=== PATIENT | female | born 1985 | race African-American/Black ===

== ENCOUNTER 2022-06-06 07:21 | Emergency (ER) | payer OTHER, SELFPAY ==
--- NOTE | ~2022-06-06 | XR_ITS ---
EXAMINATION: XR CHEST CLINICAL INFORMATION: Shortness of breath COMPARISON: None TECHNIQUE: 2 views of the chest were obtained. FINDINGS: Cardiac leads overlie the chest. The lungs are well expanded. There is no focal consolidation, edema, or effusion. No pneumothorax. The cardiomediastinal silhouette is within normal limits. No acute osseous abnormality. XR/XR chest 2V IMPRESSION: Clear lungs.
--- NOTE | 2022-06-06 07:40 | ECG_ITS ---
Test Reason : chest tightness/ discomfort Blood Pressure : / mmHG Vent. Rate : 076 BPM Atrial Rate : 076 BPM P-R Int : 130 ms QRS Dur : 068 ms QT Int : 388 ms P-R-T Axes : 033 007 018 degrees QTc Int : 436 ms Normal sinus rhythm Normal ECG No previous ECGs available Referred By: Generic ED Physician Electronically Signed By:SHIVANI EMERSON MD
[2022-06-06 07:41] VITALS: BP 112/79; PULSE 74; RESP 18; TEMP 36.9; O2SAT 99; BMI 37.6
--- NOTE | 2022-06-06 08:08 | ED.GENADULT ---
HPI - General Adult General Chief complaint: Arrhythmia/Palpitations Stated complaint: Heart Palpitations Time Seen by Provider: 06/06/22 08:08 Source: patient Mode of arrival: ambulatory Limitations: no limitations History of Present Illness HPI narrative: Patient is a 37 year old assigned female at with no reported medical history presenting to the emergency department today with palpitations and dry skin. Patient states that she has noticed over the last week that she has had palpitations and dry skin of the left hand. Patient states that the palpitations come and go but nothing seems to help and nothing seems to make it better. Patient states she also noticed a patch of dry skin on her left hand. Patient denies any dizziness, lightheadedness, abdominal pain, nausea, vomiting, fever, chills, blurry vision, double vision, loss of vision, chest pain, difficulty breathing, shortness of breath, back pain, night sweats, vaginal bleeding, vaginal discharge, pain with urination, increased urinary frequency, increased urinary urgency, blood in her urine or stool, syncope or a near syncopal episode, recent trauma or falls, bowel incontinence, bladder incontinence, bowel retention, bladder retention, or any other complaints at this time. Onset (ago): week(s) (1) Severity: mild Severity scale (1-10): 2 Relieving factors: none Exacerbating factors: none Associated symptoms: denies other symptoms Treatments prior to arrival: none Related Data Previous Rx's Medication Instructions Recorded hydrocortisone 2.5 % topical cream 1 appl topical BID PRN skin 06/06/22 irritation #20 grams Allergies Allergy/AdvReac Type Severity Reaction Status Date / Time No Known Allergies Allergy Unverified 04/20/20 19:33 [No Known Allergies*] Review of Systems Constitutional: Constitutional: Reports no additional constitutional complaints, Denies chills, Denies fever(s) and Denies night sweats Eyes: Eyes: Reports no additional eye complaints, Denies blurry vision, Denies change in vision, Denies diplopia, Denies eye discharge, Denies loss of vision and Denies eye pain ENT: Denies dizziness Cardiovascular: Cardiovascular: Reports no additional cardiovascular complaints, Denies chest pain, Denies lightheadedness, Denies Loss of Consciousness and Denies dyspnea Comments: palpitations Respiratory: Respiratory: Reports no additional respiratory complaints and Denies dyspnea Gastrointestinal: Gastrointestinal: Reports no additional gastrointestinal complaints, Denies abdominal pain, Denies melena, Denies hematochezia, Denies change in bowel habits and Denies change in stool character Genitourinary: Genitourinary: Denies hematuria, Denies urinary frequency, Denies dysuria, Denies urinary incontinence, Denies urinary hesitancy and Denies urinary urgency Musculoskeletal: Musculoskeletal: Reports no additional musculoskeletal complaints, Denies numbness and Denies tingling Integumentary/Breasts: Comments: dry area of skin to left hand Neurologic: Denies dizziness, Denies loss of vision, Denies numbness and Denies tingling Psychiatric: Psychiatric: Reports no additional psychiatric complaints Endocrine: Endocrine: Reports no additional endocrine complaints Hematologic/Lymphatic: Hematologic/Lymphatic: Reports no additional hematologic/lymphatic complaints Allergic/Immunologic: Allergic/Immunologic: Reports no additional allergic/immunologic complaints PMFSH Past Medical History Attestation statement: The following information was validated with the patient. Source: old records reviewed Social History Social History Advance Directives: No Physical Exam ED Vital Signs: Vital Signs - 24 hr 06/06/22 07:41 06/06/22 08:43 06/06/22 10:15 Temperature 98.4 F 97.8 F Pulse Rate 74 67 73 Respiratory Rate 18 14 16 Blood Pressure 112/79 116/64 126/80 Pulse Oximetry 99 99 99 Oxygen Delivery Method Room Air Room Air Room Air BMI result Body Mass Index 37.6 Const General: cooperative, no acute distress, alert and awake Nutritional Appearance: well nourished Orientation/consciousness: patient oriented x3 Limitations: no limitations [facility] Head: Yes normal to inspection and Yes atraumatic Ears: hearing grossly normal bilaterally and external ears normal General nose exam: Normal external nose present, no nasal discharge noted and no epistaxis Face and sinus: Yes normal facial exam, No abrasion and No laceration Mouth: Normal oral and palatal mucosa present, no drooling and no muffled voice Eyes General: appearance normal, both eyes and all related structures Periorbital: periorbital findings normal Eyelids: Yes eyelids normal Conjunctivae: conjunctivae normal Pupils: Equal, round and reactive pupils present EOM: EOMs intact bilaterally Neck Neck: Yes normal visual inspection, Yes full ROM and Yes no lymphadenopathy Chest Chest palpation & inspection: normal inspection of the chest Resp Effort & Inspection: normal respiratory effort and able to speak in complete sentences Auscultation: clear to auscultation bilaterally Cardio Rate: regular rate Rhythm: regular rhythm GI Inspection: Yes normal to inspection Skin Other: small area of dry skin to the dorsal aspect of the left hand between the 4th and 5th MCP joints Neuro General: patient oriented x3 and moves all extremities Cranial nerves: Yes Equal, round and reactive pupils present Cognition (Neuro): normal cognition Motor exam (neuro): 5/5 motor strength present throughout Sensory Exam: Normal double simultaneous stimulation for sensation Coordination: [id number] test normal Extrem General: Yes normal to inspection, Yes full ROM and Yes capillary refill normal Psych Appearance: grossly normal Mental Status: mental status grossly normal Affect: normal affect Attitude: cooperative Thought process: Normal thought process present Thought content: Normal thought content present Insight: Good insight present (Psych) Medical Decision Making MDM Narrative Medical decision making narrative: Patient is a 37 year old assigned female at with no reported medical presenting to the emergency department today with palpitations and left hand dryness. Patient's physical exam showed a small area of dry skin to the left dorsal hand between the 4th and 5th MCP joints. Patient's blood work showed a slightly decreased magnesium but was otherwise unremarkable. Patient's EKG was unremarkable. Patient's chest x-ray showed no acute process. I explained my physical exam findings as well as all test results to the patient. I answered all questions asked by the patient. I stressed the importance of the patient taking her medication as prescribed. I stressed the importance of the patient following up with her primary care provider, a chicken tender, and a field artillery operations man. I stressed the importance of the patient returning to the emergency department immediately if her symptoms were to worsen or if she were to develop any dizziness, shortness of breath, difficulty breathing, chest pain, blurry vision, loss of vision, nausea, vomiting, abdominal pain, fever, chills, back pain, or any other complaints. Patient verbalized agreement and understanding with this treatment plan and discharge. Medical Records Medical records reviewed: Yes I reviewed the patient's medical records. Lab Data Lab results reviewed: Yes I reviewed the patient's lab results. Result diagrams: 06/06/22 08:55 06/06/22 08:55 Labs: Lab Results 06/06/22 06/06/22 06/06/22 Range/Units 08:55 08:55 08:55 WBC 5.1 (4.8-10.8) X10*3/uL RBC 4.00 L (4.20-5.50) X10*6/uL Hgb 11.2 L (12.0-16.0) g/dl Hct 35.5 L (37.0-47.0) % MCV 88.8 (80.0-98.0) fL MCH 28.0 (27.0-33.0) pg MCHC 31.5 (31.0-35.0) g/dl RDW 13.3 (11.0-16.0) % Plt Count 258 (160-400) X10*3/uL MPV 9.8 (9.4-12.3) fL Immature Gran % (Auto) 0.2 (0.0-0.4) % Neut % (Auto) 40.9 L (45-73) % Lymph % (Auto) 45.9 H (20-40) % Vernon % (Auto) 8.9 (2-11) % Eos % (Auto) 3.3 (0-4) % Baso % (Auto) 0.8 (0-2) % Lymph # (Auto) 2.3 (1.2-4.9) X10*3/uL Vernon # (Auto) 0.5 (0.1-1.2) X10*3/uL Eos # (Auto) 0.2 (0.0-0.4) X10*3/uL Baso # (Auto) 0.0 (0.0-0.2) X10*3/uL Abs Immat Gran (auto) 0.01 (0.00-0.03) X10*3/uL Absolute Neuts (auto) 2.1 (2.0-8.3) x10*3/uL Absolute Nucleated RBC 0.000 (0.0-0.012) X10*3/uL Nucleated RBC % (auto) 0.0 (0.0-0.2) /100WBC Sodium (135-145) mmol/L Potassium (3.3-5.1) mmol/L Chloride (96-108) mmol/L Carbon Dioxide (22-29) mmol/L Anion Gap (12-20) BUN (9-16) mg/dL Creatinine (0.5-1.4) mg/dL Estim Creat Clear Calc Estimated GFR Random Glucose (60-115) mg/dL Calcium (8.4-10.2) mg/dL Magnesium 1.5 L (1.6-2.6) mg/dL Total Bilirubin (0.0-1.0) mg/dL AST (5-31) U/L ALT (0-31) U/L Alkaline Phosphatase (39-117) U/L Troponin I High Sens < 3.5 (<3.5-17.0) ng/L Total Protein (6.5-8.0) g/dL Albumin (3.5-5.0) g/dL TSH (0.32-4.0) uIU/mL Beta HCG, Quant mIU/mL COVID-19 ([facility]) (Negative) COVID-19 Clin Com 06/06/22 06/06/22 06/06/22 Range/Units 08:55 08:55 08:55 WBC (4.8-10.8) X10*3/uL RBC (4.20-5.50) X10*6/uL Hgb (12.0-16.0) g/dl Hct (37.0-47.0) % MCV (80.0-98.0) fL MCH (27.0-33.0) pg MCHC (31.0-35.0) g/dl RDW (11.0-16.0) % Plt Count (160-400) X10*3/uL MPV (9.4-12.3) fL Immature Gran % (Auto) (0.0-0.4) % Neut % (Auto) (45-73) % Lymph % (Auto) (20-40) % Vernon % (Auto) (2-11) % Eos % (Auto) (0-4) % Baso % (Auto) (0-2) % Lymph # (Auto) (1.2-4.9) X10*3/uL Vernon # (Auto) (0.1-1.2) X10*3/uL Eos # (Auto) (0.0-0.4) X10*3/uL Baso # (Auto) (0.0-0.2) X10*3/uL Abs Immat Gran (auto) (0.00-0.03) X10*3/uL Absolute Neuts (auto) (2.0-8.3) x10*3/uL Absolute Nucleated RBC (0.0-0.012) X10*3/uL Nucleated RBC % (auto) (0.0-0.2) /100WBC Sodium 140 (135-145) mmol/L Potassium 3.9 (3.3-5.1) mmol/L Chloride 102 (96-108) mmol/L Carbon Dioxide 28 (22-29) mmol/L Anion Gap 14 (12-20) BUN 12 (9-16) mg/dL Creatinine 0.70 (0.5-1.4) mg/dL Estim Creat Clear Calc 158.9 Estimated GFR > 60 Random Glucose 109 (60-115) mg/dL Calcium 9.3 (8.4-10.2) mg/dL Magnesium (1.6-2.6) mg/dL Total Bilirubin 0.5 (0.0-1.0) mg/dL AST 17 (5-31) U/L ALT 16 (0-31) U/L Alkaline Phosphatase 79 (39-117) U/L Troponin I High Sens (<3.5-17.0) ng/L Total Protein 7.5 (6.5-8.0) g/dL Albumin 4.2 (3.5-5.0) g/dL TSH 1.36 (0.32-4.0) uIU/mL Beta HCG, Quant < 2 mIU/mL COVID-19 ([facility]) Negative (Negative) COVID-19 Clin Com See Note Imaging Data Chest x-ray: Attestation: I personally reviewed and interpreted this imaging study as follows: My impression: No acute process. Radiologist's impression: EXAMINATION: XR CHEST CLINICAL INFORMATION: Shortness of breath COMPARISON: None TECHNIQUE: 2 views of the chest were obtained. FINDINGS: Cardiac leads overlie the chest. The lungs are well expanded. There is no focal consolidation, edema, or effusion. No pneumothorax. The cardiomediastinal silhouette is within normal limits. No acute osseous abnormality. XR/XR chest 2V IMPRESSION: Clear lungs. Dictated By: Hudson Joseph MD Signed By: Electronically signed by Hudson Joseph MD 06/06/22 1019 ECG Data Attestation: I personally reviewed and interpreted this ECG as follows: Prior ECG tracings: not available for review Interpretation: Vent. Rate: 076 BPM ? ? Atrial Rate: 076 BPM P-R Int: 130 ms? QRS Dur: 068 ms QT Int: 388 ms ? ? ? P-R-T Axes: 033 007 018 degrees QTc Int: 436 ms ? Normal sinus rhythm Normal ECG No previous ECGs available DD/ Discharge Plan Discharge Clinical Impression: Palpitations, Eczema Patient Disposition: Home, Self-Care Instructions: Heart Palpitations (ED), Dermatitis (ED) Additional Instructions: Follow up with your primary care provider, a chicken tender, and a field artillery operations man. Return to the emergency department immediately if your symptoms worsen or if you develop any dizziness, shortness of breath, difficulty breathing, chest pain, blurry vision, loss of vision, nausea, vomiting, abdominal pain, fever, chills, back pain, or any other complaints. Prescriptions: New hydrocortisone 2.5 % cream 1 appl topical BID PRN (Reason: skin irritation) Qty: 20 0RF Referrals: [facility] [Provider Group] (Call to establish and follow up with a field artillery operations man. ) [facility] Cardi[facility] Services [Provider Group] (Call to establish and follow up with a chicken tender. ) [facility] [place] [facility] [Provider Group] (Call to establish and follow up with a primary care provider. If you already have a primary care provider, please follow up with them. ) [facility] [place] [facility] [place] [Provider Group] (Call to establish and follow up with a primary care provider. If you already have a primary care provider, please follow up with them. ) [facility] [place] [facility] [Provider Group] (Call to establish and follow up with a primary care provider. If you already have a primary care provider, please follow up with them. ) Stand Alone Forms: Work/School Release Print Language: Frisian
[2022-06-06 08:43] VITALS: BP 116/64; PULSE 67; RESP 14; TEMP 36.6; O2SAT 99
[2022-06-06 09:00] LABS: MANUAL DIFF FLAG NO
[2022-06-06 09:02] LABS: Basophils Percent Auto 0.8 % (0-2); Eosinophils Absolute Auto 0.2 X10*3/uL (0.0-0.4); Eosinophils Percent Auto 3.3 % (0-4); Hematocrit 35.5 % (37.0-47.0); Hemoglobin 11.2 g/dl (12.0-16.0); Imm Gran Abs Auto 0.01 X10*3/uL (0.00-0.03); Imm Gran Pct Auto 0.2 % (0.0-0.4); Lymphocytes Absolute Auto 2.3 X10*3/uL (1.2-4.9); Lymphocytes Percent Auto 45.9 % (20-40); Mean Corpuscular HGB Conc 31.5 g/dl (31.0-35.0); Mean Corpuscular Volume 88.8 fL (80.0-98.0); Mean Platelet Volume 9.8 fL (9.4-12.3); Monocytes Absolute Auto 0.5 X10*3/uL (0.1-1.2); Monocytes Percent Auto 8.9 % (2-11); Neutrophils Absolute Auto 2.1 x10*3/uL (2.0-8.3); Neutrophils Percent Auto 40.9 % (45-73); Platelet Count 258 X10*3/uL (160-400); Red Cell Distribution Width 13.3 % (11.0-16.0); White Blood Count 5.1 X10*3/uL (4.8-10.8)
[2022-06-06 09:16] LABS: COVID-19 Test Negative (Negative); IDNOW Serial# 9DB6401D; Magnesium 1.5 mg/dL (1.6-2.6)
[2022-06-06 09:24] LABS: Troponin-I High Sensitivity < 3.5 ng/L (<3.5-17.0)
[2022-06-06 09:25] LABS: Alanine Aminotransferase 16 U/L (0-31); Albumin Level 4.2 g/dL (3.5-5.0); Alkaline Phosphatase 79 U/L (39-117); Anion Gap 14 (12-20); Aspartate Amino Transferase 17 U/L (5-31); Blood Urea Nitrogen 12 mg/dL (9-16); Calcium 9.3 mg/dL (8.4-10.2); Carbon Dioxide 28 mmol/L (22-29); Chloride 102 mmol/L (96-108); Creatinine Clr Calc Pharmacy 158.9; Estimated Glomerular Filt Rate > 60; Glucose Random 109 mg/dL (60-115); Potassium 3.9 mmol/L (3.3-5.1); Sodium 140 mmol/L (135-145); Total Protein 7.5 g/dL (6.5-8.0)
[2022-06-06 09:33] LABS: Bilirubin Total 0.5 mg/dL (0.0-1.0)
[2022-06-06 09:38] LABS: TSH reflex Free T4 1.36 uIU/mL (0.32-4.0)
[2022-06-06] MEDS: Magnesium Oxide 400 MG TABLET PO (09:43)
[2022-06-06 10:01] LABS: HCG Quantitative < 2 mIU/mL
[2022-06-06 10:15] VITALS: BP 126/80; PULSE 73; RESP 16; O2SAT 99
== END 2022-06-06 10:58 | disposition home or self-care (01) ==
PROVIDERS: Physician Assistant Medical; Emergency Provider Emergency Medicine
DX: R00.2 Palpitations (principal); L30.9 Dermatitis, unspecified; Z20.822 Contact with and (suspected) exposure to COVID-19
CPT/HCPCS: 36415; 71046; 80053; 83735; 84443; 84484; 84702; 85025; 87635; 93005; 99283; 99284

== ENCOUNTER 2025-05-05 23:02 | Emergency (ER) | payer OTHER, SELFPAY ==
[2025-05-05 23:32] VITALS: BP 110/57; PULSE 71; RESP 20; TEMP 36.6; O2SAT 99; BMI 28.7
--- OUTSIDE RECORDS SUMMARY | 2025-05-06 00:20 | XMS_ITS ---
Author Name [facility] Organization Unknown Care Team Organization Name Specialty Phone Email Start Date End Da te [facility] 07/16/2023 024 [facility] 06/11/2022 03/22/20 24
--- OUTSIDE RECORDS SUMMARY | 2025-05-06 00:20 | XMS_ITS | Clinical Summary ---
Author Organization [facility] [address] [facility] [address] Address [address] [place] [address] Phone Care Team Providers Care Railcar Carpenter Name Role Phone Pa Recio MD Primary Care Provider Allergies No known active allergies Medications clotrimazole (LOTRIMIN) 1 % cream To affected area 2 times daily for at least 3 weeks, and until resolved 08/20/2022 Active metFORMIN XR (GLUCOPHAGE-XR) 500 mg 24 hr tabletIndicatio ns:Type 2 diabetes mellitus without complication, without long-term current use of insulin ([facility] V24, [facility] V28) Take 1 tablet (500 mg total) by mouth 1 (one) time each day with breakfast. Do not crush, chew, or split. 30 each 11 06/14/2024 06/14/20 25 Active Active Problems Problem Noted Date Diagnosed Date Prediabetes 08/20/2022 Vitamin D deficiency 11/02/2018 Anemia 10/27/2018 Obesity (BMI 35.0-39.9 without comorbidity) 10/02 ASCUS with positive high risk HPV cervical 10/09 Overview (05/17/2024): Pap smear done 09/16/16 Colposcopy with biopsy done on 10/09/15 - biopsy -SQUAMOUS MUCOSA, NEGATIVE FOR DYSPLASIA. - follow up in 1 year for annual exam WITH pap smear. 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/21/2015 Hidradenitis axillaris 05/26/2013 Acne 11/17/2012 Immunizations Immunization Administration Dates Next Due Influenza trivalent, MDCK, 0 .5mL, preservative free (Flucelvax) 6mo and older 06/10/2024 Influenza trivalent, with preservative (Fluzone; Afluria) 6mo and older 06/18/2023,07/12/2021 PPD Test 10/15/2018, 6,02/14/2014,2012 Bluepay SARS-CoV-2 COVID-19, mRNA, LNP-S, preservative free 02/06/2021,01/09/2021 Tdap Tetanus diptheria acell ular pertussis (Boostrix; Adacel) 7yo and older 11/06/2023,07/12/2021,11/16/2012 Varicella live (Varivax) 12m o and older 09/25/2015 Surgical History Surgery Date Site/Laterality Comments BREAST BIOPSY 2017 Right PROCEDURE: BX BREAST; PERC NEEDLE CORE W/IMAG GUID Medical History Medical History Date Comments Hidradenitis axillaris 05/26/2013 DX:Hidrad enitis axillaris Acne 11/17/2012 DX:Acne Obesity (BMI 35.0-39.9 witho ut comorbidity) 10/12/2018 DX:Obesity (BMI 35.0-39.9 wi thout comorbidity) Vitamin D deficiency 11/02/2018 DX:Vitamin D deficiency Anemia 10/27/2018 DX:Anemia Gestational diabetes Family History Medical History Relation Name Comments No Known Problems Brother 1 No Known Problems Brother 2 Hypertension Father Blindness Maternal Grandmother 100 yea rs old! 10/2018 Diabetes Mother No Known Problems Sister 1 No Known Problems Sister 2 No Known Problems Sister 3 No Known Problems Sister 4 No Known Problems Sister 5 No Known Problems Sister 6 No Known Problems Sister 7 Breast cancer Neg Hx Colon cancer Neg Hx Ovarian cancer Neg Hx Relation Name Status Comments Brother 1 Alive 2 Brother 2 Alive Father Alive htn, Maternal Grandfather Maternal Grandmother Mother Alive dm, Paternal Grandfather Paternal Grandmother Sister 1 Alive 7 Sister 2 Alive Sister 3 Alive Sister 4 Alive Sister 5 Alive Sister 6 Alive Sister 7 Alive Social History Tobacco Use Types Packs/Day Years Used Date Smoking Tobacco: Never Smokeless Tobacco: Never Tobacco Cessation:Counseling Given: Not Answered Alcohol Use Standard Drinks/Week Comments No 0 (1 standard drink = 0.6 oz pur e alcohol) Comments No Sex and Gender Information Value Date Recorded Sex Assigned at Not on file Legal Sex Female 10:13 AM EST Gender Identity Not on file Sexual Orientation Not on file Obstetrics History Last Filed Vital Signs Vital Sign Reading Time Taken Comments Blood Pressure 98/70 06/10/2024 9:45 AM EST Pulse 74 06/10/2024 9:45 AM EST Temperature 36.4 C (97.6 F) 06/10/2024 9:45 AM EST Respiratory Rate 16 06/10/2024 9:45 AM EST Oxygen Saturation - - Inhaled Oxygen Concentration - - Weight 122 kg (269 lb) 06/10/2024 9:45 AM EST Height 180 cm (5' 10.87 ) 06/10/2024 9:45 AM EST Body Mass Index 37.66 06/10/2024 9:45 AM EST Plan of Treatment Upcoming Encounters Date Type Department Care Team (Late st Contact Info) Description 06/14/2025 1:30 PM EST Office Visit Adult Medicine [facility] [address] [place] [address] Pa Recio MD [address] [place] [address] Health Maintenance Due Date Last Done Comments Hepatitis B Vaccines (1 of 3 - 19+ 3-dose series) 02/22/2004 Pneumococcal Vaccine: Pediatrics (0 to 5 Years) and At-Risk Patients (6 to 49 Years) (1 of 2 - PCV) 02/22/2004 HPV Vaccines (1 - 3-dose SCDM series) 02/22/2012 Breast Cancer Screening 05/12/2020 05/12/20 18, 11/05/2017, 10/27/2017, Additional history exists Social Influencers of Health Screening 07/13/2022 Depression Screening 08/04/2024 COVID-19 Vaccine ( season) 2025 02/06/2021, 01/09/2021, 12/18/2020 Influenza Vaccine (#1) 2025 4, 06/18/2023, 07/12/2021 Cholesterol Screening (Lipid Panel) 05/11/2027 05/11/2022 Cervical Cancer Screening: HPV 10/12/2027 10/11/2022 DTaP,Tdap,and Td Vaccines (4 - Td or Tdap) 11/05/2033 11/06/2023, 07/12/2021, 11/16/2012 RSV Immunization Adult Patients (1 - 1-dose 75+ series) 02/22/2060 Varicella Vaccines Aged Out 09/25/2015 No longer eligible based on patient's age to complete this topic HIV Screening Completed 10/13/2018 Hepatitis C Screening Completed 10/13/2018 HIB Vaccines Aged Out No longer eligi ble based on patient's age to complete this topic Hepatitis A Vaccines Aged Out No long er eligible based on patient's age to complete this topic IPV Vaccines Aged Out No longer eligi ble based on patient's age to complete this topic MMR Vaccines Aged Out No longer eligi ble based on patient's age to complete this topic Meningococcal ACWY Vaccine Aged Out N o longer eligible based on patient's age to complete this topic Meningococcal B Vaccine Aged Out No l onger eligible based on patient's age to complete this topic RSV Immunization Patients Under 20 months Aged Out No longer eligible based on patient's age to complete this topic Procedures Procedure Name Priority Date/Time Associated Diagnosis Comments HPV Routine 10/11/2022 LIPID PANEL Routine 05/11/2022 HEPATITIS C SCREENING Routine 10/13/2018 HIV SCREENING Routine 10/13/2018 DX MAMMO INCL CAD UNI Routine 05/12/2018 9:29 AM EDT Other abnormal and inconclusive findings on diagnostic imaging of breast from Last 3 Months or Most Recently Relevant to Health Maintenance Results * Cervical Cancer Screening: HPV (10/11/2022) Cervical Cancer Screening: HPV negative, abstracted us Historical Provider MD HEALTH MAINTENANCE Final Result * (ABNORMAL) Lipid panel (05/11/2022) Pathologist [facility] LDL/HDL Ratio 3 0 - 4 Triglycerides 50 0 - 150 mg/dL Cholesterol 180 0 - 200 mg/dL HDL 55 >=40 mg/dL LDL Cholesterol 115(A) 0 - 100 mg/dL Blood Venous blood specimen / Unknown Result [facility] Provider LAB BLOOD ORDERABLES Kaitlynn l Result * HIV Screening (10/13/2018) Pathologist [facility] HIV Screening abstracted Result [facility] Final Result * Hepatitis C Screening (10/13/2018) [facility] Hepatitis C Screening abstracted Result [facility] Final Result * DX MAMMO INCL CAD UNI (05/12/2018 9:29 AM EDT) Anatomical Region Laterality Modality Mammography 11/07/2017 11:3 5 AM EDT Narrative 05/12/2018 1:46 PM EDT This is a summary report. The complete report is available in the patient's medical record. If you cannot access the medical record, please contact the sending organization for a detailed fax or copy. 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 Six-month follow-up recommended. Comparison: Multiple prior unilateral right digital diagnostic mammograms, most recent dated 11/05/2017. Screening mammogram dated 08/23/2016. Findings: The right breast is heterogeneously dense, limiting sensitivity. A small metallic biopsy clip within a stable ovoid nodule at the middle one third of the superomedial right breast. No new suspicious mass, architectural distortion or suspicious calcifications are identified. IMPRESSION: : Dense breast tissue, limiting the sensitivity of mammography. Stable parenchymal appearance with no new mammographic evidence of malignancy. Recommend routine screening to begin at age 40 with interval follow-up as clinically indicated. BI-RADS 2-benign. 5 year breast cancer risk assessment N/A Lifetime breast cancer risk assessment N/A Breast cancer risk category Breast cancer risk not assessed Procedure Note Yesenia Daigle, DO - 07/23/2022 This is a summary report. The complete report is available in thepatient's medical record. If you cannot access the medical record, pleasecontact the sending organization for a detailed fax or copy. UNILATERAL RIGHT DIGITAL DIAGNOSTIC MAMMOGRAM Indication: History of right breast core biopsy revealing dense stromalfibrosis and PASH. Six-month follow-up recommended. Comparison: Multiple prior unilateral right digital diagnostic mammograms,most recent dated 11/05/2017. Screening mammogram dated 08/23/2016. Findings: The right breast is heterogeneously dense, limiting sensitivity.A small metallic biopsy clip within a stable ovoid nodule at the middleone third of the superomedial right breast. No new suspicious mass,architectural distortion or suspicious calcifications are identified. IMPRESSION: : Dense breast tissue, limiting the sensitivity of mammography. Stableparenchymal appearance with no new mammographic evidence of malignancy.Recommend routine screening to begin at age 40 with interval follow-up asclinically indicated. BI-RADS 2-benign. 5 year breast cancer risk assessment N/A Lifetime breast cancer risk assessment N/A Breast cancer risk category Breast cancer risk not assessed Rach Krishnamurthy DO IMG BI PROCEDURES Final Resul t from Last 3 Months or Most Recently Relevant to Health Maintenance Insurance [facility] Care Teams Railcar Carpenter Relationship Specialty Start Date End Date Pa Recio MD [address] [place] [address] PCP - General Internal Medicine 01/19/25
[2025-05-06 01:34] LABS: Glucose, Whole Blood 126 mg/dL (60-115)
--- NOTE | 2025-05-06 01:35 | ED_ITS ---
HPI - Headache General Chief Complaint: Headache Stated Complaint: neck pain Time Seen by Provider: 05/06/25 00:45 History of Present Illness HPI Narrative: Patient is a 40-year-old female presents today with having right-sided neck pain for the last few days. The pain is dull. It is worse with turning her head to the right. It improved with staying still. There is no pain on flexion of the neck. There is no fever no chills. There is no change in hearing. There is no focal weakness. Patient is from home. No nausea no vomiting no diaphoresis. No chest pain. No shortness of breath. Related Data Previous Rx's ?Medication ?Instructions ?Recorded hydrocortisone 2.5 % topical cream 1 appl topical BID PRN skin 06/06/22 irritation #20 grams ibuprofen 400 mg tablet 400 mg PO Q6H PRN pain #20 t abs 05/06/25 Allergies Allergy/AdvReac Type Severity Reaction Status Date / Time No Known Allergies (No Known Allergy Verified 05/05/25 23:33 Allergies*) Review of Systems Review of Systems: Positive neck pain Yes all other systems are reviewed and are negative [facility] Past Medical History Attestation statement: The following information was validated with the patient. Social History Social History Advance Directives: No Physical Exam Exam: Exam: Appearance: Alert. Oriented X3. No acute distress. Eyes: Pupils equal, round and reactive to light. ENT: Pharynx normal. Neck: Normal inspection. Positive right-sided neck pain. Range of motion grossly intact. CVS: Normal heart rate and rhythm. Pulses normal. Normal S1 and S2 Respiratory: No respiratory distress. Breath sounds normal. No Wheezing. No rales Abdomen: Soft and nontender. No rigidity. No distention. good BS x4 Skin: Skin warm and dry. Normal skin color. Normal skin turgor. Extremities: No lower extremity edema. Neurovascular intact to all extremities. No Lacerations. No Rash Neuro: Oriented X 3. No motor deficit. No sensory deficit. Moving all exter mities. No slurred speech Vital Signs: Vital Signs: Last Vital Signs Temp 97.8 F 05/05/25 23:32 Pulse 71 05/05/25 23:32 Resp 20 05/05/25 23:32 BP 110/57 L 05/05/25 23:32 Pulse Ox 99 05/05/25 23:32 O2 Del Method Room Air 05/05/25 23:32 BMI result Body Mass Index 28.7 Medical Decision Making Medical Decision Making [facility] Narrative: Well-appearing not acute distress. Patient's sugar is 126. Neck pain is on the right side. Neurovascularly intact. No distress. Likely musculoskeletal not consistent with meningitis no nuchal rigidity. No fever no chills. No photophobia. Will discharge patient home Motrin for pain rest follow-up on an outpatient basis Differential Diagnosis Differential Diagnoses: The differential diagnosis associated with the presentation includes Meningitis, head injury, tension headache, intracranial bleed, torticallus Admission/Observation Consideration of admission/observation: Escalation of care including admission/observation considered Lab Data [facility] Lab Attestation statement: I reviewed the patient's lab results. Labs: Lab Results 05/06/25 Range/Units 01:32 POC Glucose 126 H (60-115) mg/dL External Record Review External record reviewed: Prior outpatient labs Previous outpatient lab Chronic Conditions Patient?s care impacted by: Diabetes Social Determinants Patient?s care significantly limited by Social Determinants of Health including: Problems related to primary support group Discharge Plan Discharge Clinical Impression: Torticollis Patient Disposition: Home, Self-Care Instructions: Neck Pain (ED) Prescriptions: New ibuprofen 400 mg tablet 400 mg PO Q6H PRN (Reason: pain) Qty: 20 0RF No Action hydrocortisone 2.5 % cream 1 appl topical BID PRN (Reason: skin irritation) Qty: 20 0RF Referrals: Physician,Unknown J [Primary Care Provider, Medical] - 05/09/25 Print Language: Danish
[2025-05-06 01:45] VITALS: BP 110/57; PULSE 71; RESP 20; TEMP 36.6; O2SAT 99
== END 2025-05-06 01:45 | disposition home or self-care (01) ==
PROVIDERS: Emergency Provider Emergency Medicine Emergency Medical Services
DX: M43.6 Torticollis (principal); R51.9 Headache, unspecified; M54.2 Cervicalgia
CPT/HCPCS: 82947; 99282; 99283